=== PATIENT | male | born 1995 | race African-American/Black ===

== ENCOUNTER 2017-01-10 09:54 | Emergency (ER) | payer SELFPAY ==
[2017-01-10 11:40] LABS: Hematocrit 43 % (42-52); Hemoglobin 14.1 g/dl (14.0-18.0); Mean Corpuscular HGB Conc 33 g/dl (31-36); Mean Corpuscular Hemoglobin 24 pg (27-31); Mean Corpuscular Volume 73 fL (80-94); Mean Platelet Volume 9 um3 (7.4-10.4); Red Blood Count 5.94 10^6/ul (4.0-5.4); Red Cell Distribution Width 15 % (10.5-15); White Blood Count 6.7 10^3/ul (3.5-10.8)
[2017-01-10 11:43] LABS: Add Diff/Slide Review? Slide Review Added; Comments Flag Yes
[2017-01-10 11:55] LABS: ALT 19 U/L (7-52); AST 18 U/L (13-39); Albumin 4.2 g/dL (3.2-5.2); Alkaline Phosphatase 56 U/L (34-104); Anion Gap 4 mmol/L (2-11); BUN/Creatinine Ratio 14.6 (8-20); Blood Urea Nitrogen 15 mg/dL (6-24); CO2 Carbon Dioxide 29 mmol/L (22-32); Calcium 9.2 mg/dL (8.6-10.3); Chloride 105 mmol/L (101-111); Creatine Kinase 449 U/L (10-223); EGFR African American 116.1 (>60); EGFR Non-African American 90.3 (>60); Glucose 95 mg/dL (70-100); Magnesium 2.1 mg/dL (1.9-2.7); Potassium 3.8 mmol/L (3.5-5.0); Sodium 138 mmol/L (133-145); Total Protein 7.2 g/dL (6.4-8.9)
[2017-01-10 12:02] LABS: Hypochromasia 2+; Microcytosis 2+
[2017-01-10 12:08] LABS: Alcohol < 10 mg/dL (<10)
[2017-01-10 14:18] VITALS: BP 131/94
[2017-01-10 14:54] LABS: Urine Bacteria Absent (Absent); Urine Bilirubin Negative (Negative); Urine Glucose Negative (Negative); Urine Nitrite Negative (Negative)
[2017-01-10 15:03] LABS: Benzodiazepine Urine Screen Presumptive Positive (None Detect)
--- NOTE | 2017-01-10 21:39 | CONS ---
NEUROLOGY CONSULTATION: DATE OF CONSULT: 01/10/17 LOCATION: The patient is in the emergency department. REQUESTING PROVIDER: Dr. Juliana Mejia. REASON FOR CONSULT: Seizure. HISTORY OF PRESENT ILLNESS: Avni Ortiz is a 21-year-old man with history of primary generalized epilepsy with rare generalized convulsions and history of medication noncompliance. I saw him as an outpatient in May of 2015 and recommended that he start Keppra at that time after he had experienced a breakthrough seizure in April of 2015. He then did not follow up after that visit. Yesterday, he was in his usual state of health aside from feeling overheated secondary to wearing multiple layers of clothing despite the fact that it was warm out. He also reports that he has not been sleeping well because he has been very busy at work. His cousin reports that he had an episode of whole body shaking and loss of awareness. Avni reports that when he woke up, he fell slightly out of it but it did not seem as severe as his previous episodes, so he is not really sure if he had a seizure or not. He went to work as usual this morning and told his place of employment what happened and they recommended that he come to the hospital for work clearance in order to return to work with no restrictions. 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 With respect to his previous medications, he has been treated with Depakote in the past and when I saw him in May of 2015, he reported that this made him drowsy and that is why he stopped taking it. I prescribed him Keppra and he cannot really recall why he stopped taking that medication but just says he did not like it. We discussed alternate medications to use including zonisamide but decided against using this because he has a history of SULFA DRUG allergy. He reports that he knows he should take antiseizure medication because even though his seizures are relatively rare , they have a large impact on his life in that he is not able to drive after a seizure. He reports that he is now ready to take medication and suggested that he would like to be placed back on Depakote. PAST MEDICAL HISTORY: Primary generalized epilepsy. FAMILY HISTORY: Noncontributory at this time. 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 He is working towards an associate degree in criminal justice. 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 He smokes marijuana to help him sleep at night. He reports that he drank approximately 2 beers 2 nights ago. REVIEW OF SYSTEMS: As per the HPI, otherwise negative. PHYSICAL EXAM: Vital Signs: Temperature 97.7, blood pressure 126/81, heart rate 64, and oxygen saturation 96% on room air. On general examination, he is a pleasant young man, in no acute distress. Heart is in the regular rate and rhythm with no murmurs, rubs, or gallops. Lungs are clear to auscultation bilaterally. There is no oral trauma evidenced. On neurologic examination, his mental status is normal. Speech is fluent without dysarthria or aphasia. Pupils are equal, round, and reactive from 3 to 2 mm bilaterally. Versions are full without nystagmus. Cast are full to confrontation. Facial sensation and musculature is full and symmetric. Tongue protrudes in the midline and the palate elevates symmetrically. On motor examination, there is normal bulk and tone in the upper and lower extremities. Strength is full proximally and distally. Sensation is intact to light touch. Reflexes are 2+ throughout with downgoing toes. He was not ambulated in the emergency department. LABORATORY DATA: Reviewed includes a CBC which is notable for RBC count of 5.94 , MCV of 73, MCH of 24, and slightly high monocyte percentage of 11.8 and slightly high eosinophil percentage of 7.5. His chemistry panel is notable only for a total CK of 449. Serum alcohol less than 10. IMPRESSION: Avni Ortiz is a 21-year-old man with a history of primary generalized epilepsy and rare convulsions, who was referred to the hospital for work clearance after he experienced a probable seizure yesterday. Though Avni reports that this episode was not exactly like his previous seizures in the past, I do not see another good explanation for an episode of loss of consciousness and whole body shaking in this 21-year-old man. As mentioned above, we discussed treatment of his epilepsy and he is in favor of starting Depakote at this time. He will start Depakote ER 500 mg at night and after 1 week, I would like him to increase the dose to 1000 mg at night. He was advised that he cannot drive for 12 months and should report himself to the [facility] DMV on the appropriate form. Seizure precautions were reviewed including avoiding climbing to heights taller than himself, no swimming unsupervised, he is not be around any open flames unsupervised, and he should not operate any heavy machinery. As his job involves none of these activities, he can return to work without any specific restrictions. He should follow up with me in my office in approximately 3 months and I will ask the office to give him a call to schedule that. He was instructed to call my office with any problems with tolerating his medication. All of the above was communicated to Dr. Juliana Mejia in the ED, who will arrange for his discharge. [id number]/CPS #: [id number] REBECCA
--- NOTE | 2017-01-10 22:01 | ED ---
betsy Keller Timothy, scribed for Juliana Mejia MD on 01/10/17 at 1116 . Neurological HPI - HPI Summary HPI Summary: Avni Ortiz is a 21 yo male presenting to [facility] stating he had a seizure yesterday at 1530 witnessed by his cousin. He states he was not drinking EtOH or doing drugs. His last marijuana use was 2 days ago. Pt has a Hx of seizure 1.5 years ago with a Rx for epileptic medication, however has not taken them since due to negative side effects including grogginess. He was told by his place of employment that he had to present to [facility]. Pt reports cousin described his seizure as "full body shaking" for a few seconds. Pt reports that when he awoke he was confused and tired. He slept normally and woke up feeling fine. He denies any complaints since then. He states he had bronchitis approximately 1 month ago. His MHx includes epilepsy, MRSA, and palpitations. - History of Current Complaint Chief Complaint: EDSeizure Stated Complaint: SEIZURE Time Seen by Provider: 01/10/17 11:29 Hx Obtained From: Patient Onset/Duration: Sudden Onset, Started days ago Timing: Intermittent Episodes Lasting: - seconds Onset Severity: Moderate Current Severity: Moderate Seizure Severity: Moderate Number of Seizures: 1 Neurological Deficit Location: Generalized Pain Intensity: 0 Pain Scale Used: 0-10 Numeric Character: Other: - seizure Syncope Timing: seconds Episode Lasting: Seconds/Minutes Number of Episodes: 1 Syncope Context: Witnessed, Loss of Consciousness: Yes Frequency: Episodes x___ - 1 Seizure Character: Generalized Aggravating: Nothing Alleviating: Nothing Associated Signs and Symptoms: Positive: Seizure Related Hx: Alcohol/Drug Abuse - marijuana, Seizure - DC'd Joan on his own after being seen by Dr. Mims - Additional Pertinent History Referred By: Other - his work - Allergy/Home Medications Allergies/Adverse Reactions: Allergies Allergy/AdvReac Type Severity Reaction Status Date / Time Sulfa Antibiotics AdvReac Severe HIVES Verified 01/10/17 10:06 PMH/Surg Hx/FS Hx/Imm Hx Previously Healthy: No Cardiovascular History: Reports: Other Cardiovascular Problems/Disorders - "ATHLETES' HEART" Neurological History: Reports: Hx Seizures - generalized epilepsy - Surgical History Surgery Procedure, Year, and Place: no surgical hx Infectious Disease History: Yes Infectious Disease History: Reports: Hx of Known/Suspected MRSA Denies: Traveled Outside the [place] in Last 30 Days - Family History Known Family History: Positive: Cardiac Disease, Other - seizure disorder - uncle - Social History 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 Alcohol Use: Rare Hx Substance Use: Yes Substance Use Type: Reports: Marijuana Smoking Status (MU): Never Smoked Tobacco Review of Systems Constitutional: Negative Eyes: Negative ENT: Negative Cardiovascular: Negative Respiratory: Negative Gastrointestinal: Negative Genitourinary: Negative Musculoskeletal: Negative Skin: Negative Neurological: Other - seizure Psychological: Normal All Other Systems Reviewed And Are Negative: Yes Physical Exam Triage Information Reviewed: Yes Vital Signs On Initial Exam: Initial Vitals Temp Pulse Resp BP Pulse Ox 97.2 F 75 20 135/74 100 01/10/17 09:59 01/10/17 09:59 01/10/17 09:59 01/10/17 09:59 01/10/17 09:59 Vital Signs Reviewed: Yes Appearance: Positive: No Pain Distress, Well-Nourished, Ill-Appearing Skin: Positive: Warm, Skin Color Reflects Adequate Perfusion, Dry Head/Face: Positive: Normal Head/Face Inspection Eyes: Positive: EOMI, Conjunctiva Clear ENT: Positive: Normal ENT inspection, Pharynx normal Neck: Positive: Supple, Nontender Respiratory/Lung Sounds: Positive: Clear to Auscultation, Breath Sounds Present Cardiovascular: Positive: RRR, Pulses are Symmetrical in both Upper and Lower Extremities. Negative: Murmur, Rub, Other - gallop Abdomen Description: Positive: Nontender, Soft Bowel Sounds: Positive: Present Musculoskeletal: Positive: Strength/ROM Intact Neurological: Positive: Sensory/Motor Intact - 5/5, Alert, Oriented to Person Place, Time, CN Intact II-III, Reflexes Intact, Normal Gait, Speech Normal. Negative: Focal Deficit @, Slurred Speech Psychiatric: Positive: Normal, Affect/Mood Appropriate Diagnostics - Vital Signs Vital Signs Temp Pulse Resp BP Pulse Ox 01/10/17 10:09 97.7 F 73 18 126/72 97 01/10/17 09:59 97.2 F 75 20 135/74 100 - Laboratory Lab Results: Lab Results 01/10/17 01/10/17 01/10/17 Range/Units 11:32 11:32 11:32 WBC 6.7 (3.5-10.8) 10^3/ul RBC 5.94 H (4.0-5.4) 10^6/ul Hgb 14.1 (14.0-18.0) g/dl Hct 43 (42-52) % MCV 73 L (80-94) fL MCH 24 L (27-31) pg MCHC 33 (31-36) g/dl RDW 15 (10.5-15) % Plt Count 252 (150-450) 10^3/ul MPV 9 (7.4-10.4) um3 Neut % (Auto) 52.5 (38-83) % Lymph % (Auto) 27.2 (25-47) % [place] % (Auto) 11.8 H (1-9) % Eos % (Auto) 7.5 H (0-6) % Baso % (Auto) 1.0 (0-2) % Absolute Neuts (auto) 3.5 (1.5-7.7) 10^3/ul Absolute Lymphs (auto) 1.8 (1.0-4.8) 10^3/ul Absolute Monos (auto) 0.8 (0-0.8) 10^3/ul Absolute Eos (auto) 0.5 (0-0.6) 10^3/ul Absolute Basos (auto) 0.1 (0-0.2) 10^3/ul Absolute Nucleated RBC 0.02 10^3/ul Nucleated RBC % 0.3 Normal RBC Morphology Not Reportable Hypochromasia 2+ Microcytosis 2+ INR (Anticoag Therapy) 0.97 (0.89-1.11) APTT 36.8 H (26.0-36.3) seconds Sodium 138 (133-145) mmol/L Potassium 3.8 (3.5-5.0) mmol/L Chloride 105 (101-111) mmol/L Carbon Dioxide 29 (22-32) mmol/L Anion Gap 4 (2-11) mmol/L BUN 15 (6-24) mg/dL Creatinine 1.03 (0.67-1.17) mg/dL Est GFR ( Amer) 116.1 (>60) Est GFR (Non-Af Amer) 90.3 (>60) BUN/Creatinine Ratio 14.6 (8-20) Glucose 95 (70-100) mg/dL Lactic Acid (0.5-2.0) mmol/L Calcium 9.2 (8.6-10.3) mg/dL Magnesium 2.1 (1.9-2.7) mg/dL Total Bilirubin 1.00 (0.2-1.0) mg/dL AST 18 (13-39) U/L ALT 19 (7-52) U/L Alkaline Phosphatase 56 (34-104) U/L Total Creatine Kinase 449 H (10-223) U/L Total Protein 7.2 (6.4-8.9) g/dL Albumin 4.2 (3.2-5.2) g/dL Globulin 3.0 (2-4) g/dL Albumin/Globulin Ratio 1.4 (1-3) Urine Color Urine Appearance Urine pH (5-9) Ur Specific [place] (1.010-1.030) Urine Protein (Negative) Urine Ketones (Negative) Urine Blood (Negative) Urine Nitrate (Negative) Urine Bilirubin (Negative) Urine Urobilinogen (Negative) Ur Leukocyte Esterase (Negative) Urine WBC (Auto) (Absent) Urine RBC (Auto) (Absent) Ur Squamous Epith Cells (Absent) Urine Bacteria (Absent) Urine Glucose (Negative) Urine Opiates Screen (None Detect) Ur Barbiturates Screen (None Detect) Ur Phencyclidine Scrn (None Detect) Ur Amphetamines Screen (None Detect) U Benzodiazepines Scrn (None Detect) Urine Cocaine Screen (None Detect) U Cannabinoids Screen (None Detect) Serum Alcohol < 10 (<10) mg/dL 01/10/17 01/10/17 01/10/17 Range/Units 11:32 14:10 14:10 WBC (3.5-10.8) 10^3/ul RBC (4.0-5.4) 10^6/ul Hgb (14.0-18.0) g/dl Hct (42-52) % MCV (80-94) fL MCH (27-31) pg MCHC (31-36) g/dl RDW (10.5-15) % Plt Count (150-450) 10^3/ul MPV (7.4-10.4) um3 Neut % (Auto) (38-83) % Lymph % (Auto) (25-47) % [place] % (Auto) (1-9) % Eos % (Auto) (0-6) % Baso % (Auto) (0-2) % Absolute Neuts (auto) (1.5-7.7) 10^3/ul Absolute Lymphs (auto) (1.0-4.8) 10^3/ul Absolute Monos (auto) (0-0.8) 10^3/ul Absolute Eos (auto) (0-0.6) 10^3/ul Absolute Basos (auto) (0-0.2) 10^3/ul Absolute Nucleated RBC 10^3/ul Nucleated RBC % Normal RBC Morphology Hypochromasia Microcytosis INR (Anticoag Therapy) (0.89-1.11) APTT (26.0-36.3) seconds Sodium (133-145) mmol/L Potassium (3.5-5.0) mmol/L Chloride (101-111) mmol/L Carbon Dioxide (22-32) mmol/L Anion Gap (2-11) mmol/L BUN (6-24) mg/dL Creatinine (0.67-1.17) mg/dL Est GFR ( Amer) (>60) Est GFR (Non-Af Amer) (>60) BUN/Creatinine Ratio (8-20) Glucose (70-100) mg/dL Lactic Acid 0.8 (0.5-2.0) mmol/L Calcium (8.6-10.3) mg/dL Magnesium (1.9-2.7) mg/dL Total Bilirubin (0.2-1.0) mg/dL AST (13-39) U/L ALT (7-52) U/L Alkaline Phosphatase (34-104) U/L Total Creatine Kinase (10-223) U/L Total Protein (6.4-8.9) g/dL Albumin (3.2-5.2) g/dL Globulin (2-4) g/dL Albumin/Globulin Ratio (1-3) Urine Color Yellow Urine Appearance Cloudy Urine pH 5.0 (5-9) Ur Specific [place] 1.027 (1.010-1.030) Urine Protein Negative (Negative) Urine Ketones Negative (Negative) Urine Blood Negative (Negative) Urine Nitrate Negative (Negative) Urine Bilirubin Negative (Negative) Urine Urobilinogen Negative (Negative) Ur Leukocyte Esterase Trace H (Negative) Urine WBC (Auto) 1+(6-10/hpf) H (Absent) Urine RBC (Auto) Absent (Absent) Ur Squamous Epith Cells Present H (Absent) Urine Bacteria Absent (Absent) Urine Glucose Negative (Negative) Urine Opiates Screen None detected (None Detect) Ur Barbiturates Screen None detected (None Detect) Ur Phencyclidine Scrn None detected (None Detect) Ur Amphetamines Screen None detected (None Detect) U Benzodiazepines Scrn Presumptive positive H (None Detect) Urine Cocaine Screen None detected (None Detect) U Cannabinoids Screen None detected (None Detect) Serum Alcohol (<10) mg/dL Result Diagrams: 01/10/17 11:32 01/10/17 11:32 Lab Statement: Any lab studies that have been ordered have been reviewed, and results considered in the medical decision making process. - EKG 1116 Cardiac Rate: NL - 68 BPM EKG Interpretation: NSR @ 68 PM, nml AV/IV, normal axis, inverted T III. no acute changes. Re-Evaluation - Re-Evaluation First Eval Re-Evaluation Time: 14:23 Change: Unchanged Comment: Pt was stressed the importance of not driving until cleared by Dr. Mims, he is agreeable to be discharged. Course/Dx - Course Assessment/Plan: Avni Ortiz is a 21 yo male presenting to [facility] S/P seizure lasting seconds last night in which he experienced full body shaking. Seizure was witnessed by Pt's cousin. His EKG was WNL. After clinical examination and review of his lab work, as well as discussion with Dr. Mims, he will be discharged home with seizures, started on Depakote ER, advised not to drive, but may work, and appropriate instructions. - Differential Dx Differential Diagnoses Neuro: Positive: Drug Toxicity, Migraine, Seizure Disorder, Vasovagal Reaction - Diagnoses Provider Diagnoses: Epilepsy - Physician Notifications Discussed Care of Patient With: 1257 - Dr. Mims (neurology) - discussed Pt condition and plans for follow up. She will come evaluate Pt in room. 1400 - Dr. Mims (neurology) - discussed Pt condition and evaluation. Recommends discharge with follow up in 3 months, and no driving. Instructed by Provider To: MD Will See In ED Discharge - Discharge Plan Condition: Stable Disposition: HOME Prescriptions: Divalproex ER TAB(*) [Depakote ER TAB(*)] 500 mg PO BID #60 tab.er Patient Education Materials: Epilepsy (ED) Forms: *Gen. Provider Communication, *Work Release Referrals: [facility] REFERRAL [Outside] - As Soon As Possible (You need a primary care physician. Call this number to get established. ) Shelly Mims MD [Medical Doctor] - 04/11/17 No Primary Care Phys,NOPCP [Primary Care Provider] - Additional Instructions: Please follow up with Dr. Mims in approximately 3 months regarding your visit to the emergency department today. Dr. Mims states that you may not drive given the unpredictability of your seizures until you are cleared by Dr. Mims. Please return to the emergency department with any new or recurring symptoms. The documentation as recorded by the betsy ragsdale Timothy accurately reflects the service I personally performed and the decisions made by me, Juliana Mejia MD.
== END 2017-01-10 14:27 | disposition home or self-care (01) ==
LOC: ED 09:54
DX: G40.909 Epilepsy, unspecified, not intractable, without status epilepticus (principal)
CPT/HCPCS: 36415; 80053; 80307; 80320; 81003; 81015; 82550; 83605; 83735; 85025; 85610; 85730; 87086; 93005; 99282; G0480

== ENCOUNTER 2017-02-17 11:11 | Emergency (ER) | payer SELFPAY ==
[2017-02-17] MEDS ORDERED: NS 0.9% 1000 ML* 1,000 ML IV ONE (12:57)
[2017-02-17] MEDS ORDERED: Metoclopramide IV* 5 MG/ML 2 ML VIAL IV ONE (12:57)
[2017-02-17] MEDS ORDERED: Meclizine TAB* 12.5 MG PO ONE (12:59)
[2017-02-17] MEDS ORDERED: Ketorolac INJ* 30 MG/ML 1 ML VIAL IM ONE (13:00)
--- NOTE | 2017-02-17 13:38 | RAD ---
Indication: Cough. 2 views of the chest including dual energy PA views demonstrate no mediastinal shift. Heart is of normal size and configuration. Lung rankin are clear. IMPRESSION: No active cardiopulmonary disease is noted.
[2017-02-17 13:55] LABS: Hematocrit 44 % (42-52); Hemoglobin 14.2 g/dl (14.0-18.0); Mean Corpuscular HGB Conc 33 g/dl (31-36); Mean Corpuscular Hemoglobin 24 pg (27-31); Mean Platelet Volume 9 um3 (7.4-10.4); Red Blood Count 6.04 10^6/ul (4.0-5.4); Red Cell Distribution Width 15 % (10.5-15); White Blood Count 9.2 10^3/ul (3.5-10.8)
[2017-02-17] MEDS ORDERED: Ketorolac INJ* 30 MG/ML 1 ML VIAL IV PUSH ONE (13:58)
[2017-02-17 14:00] LABS: Comments Flag Yes
[2017-02-17 14:01] LABS: Mean Corpuscular Volume 72 fL (80-94)
[2017-02-17 14:08] LABS: BUN/Creatinine Ratio 10.1 (8-20); C Reactive Protein 52.46 mg/L (< 5.00); Calcium 8.8 mg/dL (8.6-10.3); EGFR African American 108.8 (>60); EGFR Non-African American 84.6 (>60); Globulin 3.3 g/dL (2-4); Potassium 3.9 mmol/L (3.5-5.0); Total Protein 7.3 g/dL (6.4-8.9)
[2017-02-17 15:13] LABS: Manual Entry Verification HAN0055; Mono Internal Control QC Line Present
[2017-02-17 15:38] VITALS: BP 143/74
--- NOTE | 2017-02-17 18:35 | ED ---
betsy Keller Timothy, scribed for Gonzalez Acevedo MD on 02/17/17 at 1251 . Influenza-Like Illness - HPI Summary HPI Summary: Avni Ortiz is a 21 yo male presenting to [facility] with 7/10 dizziness, sore throat, MURPHY, nausea, diarrhea, chills, cough since yesterday. He has self- medicated with motrin. He denies neck pain or blurred vision, CP, SOB. His MHx includes general epilepsy, substance use, MRSA, "athletic heart". - History of Current Complaint Chief Complaint: EDDizziness Time Seen by Provider: 02/17/17 12:45 Hx Obtained From: Patient Onset/Duration: Sudden Onset, Lasting Days, Still Present Severity: Moderate Associated Signs & Symptoms: Fever, Cough, Sore Throat, Headache, Diarrhea - Allergy/Home Medications Allergies/Adverse Reactions: Allergies Allergy/AdvReac Type Severity Reaction Status Date / Time Sulfa Antibiotics AdvReac Severe HIVES Verified 01/10/17 10:06 PMH/Surg Hx/FS Hx/Imm Hx Cardiovascular History: Reports: Other Cardiovascular Problems/Disorders - "ATHLETES' HEART" Neurological History: Reports: Hx Seizures - generalized epilepsy - Surgical History Surgery Procedure, Year, and Place: no surgical hx Infectious Disease History: No Infectious Disease History: Reports: Hx of Known/Suspected MRSA Denies: Traveled Outside the [place] in Last 30 Days - Family History Known Family History: Positive: Cardiac Disease, Hypertension, Diabetes, Other - seizure disorder - uncle - Social History Alcohol Use: Rare Hx Substance Use: Yes Substance Use Type: Reports: Marijuana Smoking Status (MU): Never Smoked Tobacco Review of Systems Positive: Fever, Chills Positive: Sore Throat Cardiovascular: Negative Negative: Chest Pain Positive: Cough. Negative: Shortness Of Breath Positive: Diarrhea, Nausea Genitourinary: Negative Musculoskeletal: Negative Skin: Negative Neurological: Other - dizziness Positive: Headache Psychological: Normal All Other Systems Reviewed And Are Negative: Yes Physical Exam - Summary Physical Exam Summary: VITAL SIGNS: Reviewed. GENERAL: Patient is a well-developed and nourished male who is lying comfortable in the stretcher. Patient is not in any acute respiratory distress. There are no meningeal signs or photophobia. HEAD AND FACE: No signs of trauma. No ecchymosis, hematomas or skull depressions. No sinus tenderness. EYES: PERRLA, EOMI x 2, No injected conjunctiva, no nystagmus. No photophobia. EARS: Hearing grossly intact. Ear canals and tympanic membranes are within normal limits. MOUTH: Oropharynx within normal limits. Pharyngeal erythema without exudate. NECK: Supple, trachea is midline, no adenopathy, no JVD, no carotid bruit, no c- spine tenderness, neck with full ROM. No meningeal signs, no Kernig's or brudzinskis signs. CHEST: Symmetric, no tenderness at palpation LUNGS: Clear to auscultation bilaterally. No wheezing or crackles. CVS: Regular rate and rhythm, S1 and S2 present, no murmurs or gallops appreciated. ABDOMEN: Soft, non-tender. No signs of distention. No rebound no guarding, and no masses palpated. Bowel sounds are normal. EXTREMITIES: FROM in all major joints, no edema, no cyanosis or clubbing. NEURO: Alert and oriented x 3. No acute neurological deficits. Speech is normal and follows commands. SKIN: Dry and warm Triage Information Reviewed: Yes Vital Signs On Initial Exam: Initial Vitals Temp Pulse Resp BP Pulse Ox 97.8 F 112 20 141/77 100 02/17/17 11:13 02/17/17 11:13 02/17/17 11:13 02/17/17 11:13 02/17/17 11:13 Vital Signs Reviewed: Yes Diagnostics - Vital Signs Vital Signs Temp Pulse Resp BP Pulse Ox 02/17/17 11:13 97.8 F 112 20 141/77 100 - Laboratory Lab Results: Lab Results 02/17/17 02/17/17 02/17/17 Range/Units 13:01 13:46 13:46 WBC 9.2 (3.5-10.8) 10^3/ul RBC 6.04 H (4.0-5.4) 10^6/ul Hgb 14.2 (14.0-18.0) g/dl Hct 44 (42-52) % MCV 72 L (80-94) fL MCH 24 L (27-31) pg MCHC 33 (31-36) g/dl RDW 15 (10.5-15) % Plt Count 220 (150-450) 10^3/ul MPV 9 (7.4-10.4) um3 Neut % (Auto) 73.5 (38-83) % Lymph % (Auto) 8.9 L (25-47) % [place] % (Auto) 16.8 H (1-9) % Eos % (Auto) 0.4 (0-6) % Baso % (Auto) 0.4 (0-2) % Absolute Neuts (auto) 6.7 (1.5-7.7) 10^3/ul Absolute Lymphs (auto) 0.8 L (1.0-4.8) 10^3/ul Absolute Monos (auto) 1.5 H (0-0.8) 10^3/ul Absolute Eos (auto) 0 (0-0.6) 10^3/ul Absolute Basos (auto) 0 (0-0.2) 10^3/ul Absolute Nucleated RBC 0 10^3/ul Nucleated RBC % 0 Sodium 135 (133-145) mmol/L Potassium 3.9 (3.5-5.0) mmol/L Chloride 104 (101-111) mmol/L Carbon Dioxide 22 (22-32) mmol/L Anion Gap 9 (2-11) mmol/L BUN 11 (6-24) mg/dL Creatinine 1.09 (0.67-1.17) mg/dL Est GFR ( Amer) 108.8 (>60) Est GFR (Non-Af Amer) 84.6 (>60) BUN/Creatinine Ratio 10.1 (8-20) Glucose 94 (70-100) mg/dL Lactic Acid (0.5-2.0) mmol/L Calcium 8.8 (8.6-10.3) mg/dL Total Bilirubin 1.00 (0.2-1.0) mg/dL AST 21 (13-39) U/L ALT 24 (7-52) U/L Alkaline Phosphatase 59 (34-104) U/L C-Reactive Protein 52.46 H (< 5.00) mg/L Total Protein 7.3 (6.4-8.9) g/dL Albumin 4.0 (3.2-5.2) g/dL Globulin 3.3 (2-4) g/dL Albumin/Globulin Ratio 1.2 (1-3) Monoscreen Positive H (Negative) Group A Strep Rapid Negative (Negative) 02/17/17 Range/Units 13:46 WBC (3.5-10.8) 10^3/ul RBC (4.0-5.4) 10^6/ul Hgb (14.0-18.0) g/dl Hct (42-52) % MCV (80-94) fL MCH (27-31) pg MCHC (31-36) g/dl RDW (10.5-15) % Plt Count (150-450) 10^3/ul MPV (7.4-10.4) um3 Neut % (Auto) (38-83) % Lymph % (Auto) (25-47) % [place] % (Auto) (1-9) % Eos % (Auto) (0-6) % Baso % (Auto) (0-2) % Absolute Neuts (auto) (1.5-7.7) 10^3/ul Absolute Lymphs (auto) (1.0-4.8) 10^3/ul Absolute Monos (auto) (0-0.8) 10^3/ul Absolute Eos (auto) (0-0.6) 10^3/ul Absolute Basos (auto) (0-0.2) 10^3/ul Absolute Nucleated RBC 10^3/ul Nucleated RBC % Sodium (133-145) mmol/L Potassium (3.5-5.0) mmol/L Chloride (101-111) mmol/L Carbon Dioxide (22-32) mmol/L Anion Gap (2-11) mmol/L BUN (6-24) mg/dL Creatinine (0.67-1.17) mg/dL Est GFR ( Amer) (>60) Est GFR (Non-Af Amer) (>60) BUN/Creatinine Ratio (8-20) Glucose (70-100) mg/dL Lactic Acid 0.8 (0.5-2.0) mmol/L Calcium (8.6-10.3) mg/dL Total Bilirubin (0.2-1.0) mg/dL AST (13-39) U/L ALT (7-52) U/L Alkaline Phosphatase (34-104) U/L C-Reactive Protein (< 5.00) mg/L Total Protein (6.4-8.9) g/dL Albumin (3.2-5.2) g/dL Globulin (2-4) g/dL Albumin/Globulin Ratio (1-3) Monoscreen (Negative) Group A Strep Rapid (Negative) Result Diagrams: 02/17/17 13:46 02/17/17 13:46 Lab Statement: Any lab studies that have been ordered have been reviewed, and results considered in the medical decision making process. - Radiology CXR Xray Interpretation: No Acute Changes - IMPRESSION: No active cardiopulmonary disease is noted. Radiology Interpretation Completed By: Radiologist - EKG 1335 Cardiac Rate: NL - 99 BPM EKG Interpretation: NSR @ 99 BPM, no ST elevation Re-Evaluation - Re-Evaluation First Eval Re-Evaluation Time: 15:28 Change: Improved Comment: Discussed results of lab and imaging studies with Pt. Pt is feeling better, and would like to be off work for today and tomorrow. Flu Symptom Course/Dx - Course Assessment/Plan: Avni Ortiz is a 21 yo male presenting to [facility] with dizziness, sore throat, MURPHY, nausea, diarrhea, chills, cough, photophobia since yesterday. In the ED course he received IV fluids, toradol for pain management, reglan for nausea control, and antivert. His group A rapid strep test was negative. His CXR suggests no active cardiopulmonary disease. His EKG suggests NSR with no ST elevation. After clinical examination and review of his lab and imaging studies, he will be discharged home with viral pharyngitis, mono infection, and diarrhea with appropriate instructions. Test results WNL except CRP 52. His rapid strep was negative, his monoscreen was positive. CXR negative for any acute pathology. In ED course he received IV fluids, toradol for pain, and his Sx improved. At this point Pt is asymtpomatic. I believ all his Sx are secondary to infectious mono and possibly viral congitis. Pt will be discharged home with F/U with his PCP. Pt was given instructions to avoid contact sports, and understands and agrees. I discussed all the findings and test results with the patient. Patient was instructed to return to the emergency room immediately if any of the symptoms return or worsens. Patient understands and agrees. Plan of care was discussed with the patient and patient understands and agrees with the plan of care. All questions were answered at patient satisfaction. There were no further complaints or concerns. Patient is alert and oriented x 3. Patient vital signs are stable. Patient is to follow up with primary care physician in the next 2 to 3 days. Patient understands and agrees. - Diagnoses Provider Diagnoses: Viral pharyngitis, Mononucleosis, Diarrhea Discharge - Discharge Plan Condition: Stable Disposition: HOME Patient Education Materials: Pharyngitis (ED), Mononucleosis (ED), Acute Diarrhea (ED) Forms: *Work Release Referrals: [facility]ERR[facility] [Outside] - 2 Days Additional Instructions: Please follow up with the primary care physician provided regarding your visit to the emergency department today. You have tested positive for mono today, so do not participate in any contact sports or other activities that could result in trauma to your abdomen. Return to the emergency department with any new or recurring symptoms. The documentation as recorded by the betsy ragsdale Timothy accurately reflects the service I personally performed and the decisions made by , Gonzalez Acevedo MD.
== END 2017-02-17 15:45 | disposition home or self-care (01) ==
LOC: ED 11:11
DX: J02.8 Acute pharyngitis due to other specified organisms (principal); B97.89 Other viral agents as the cause of diseases classified elsewhere; B27.90 Infectious mononucleosis, unspecified without complication; R19.7 Diarrhea, unspecified; G40.909 Epilepsy, unspecified, not intractable, without status epilepticus; I51.7 Cardiomegaly; Z88.2 Allergy status to sulfonamides
CPT/HCPCS: 36415; 71020; 80053; 83605; 85025; 86140; 86308; 87651; 93005; 96360; 96372; 96374; 99283; A9270-GY; J1885

== ENCOUNTER 2017-02-24 08:46 | Observation (INO) | payer SELFPAY ==
[2017-02-24 09:15] LABS: Hematocrit 43 % (42-52); Hemoglobin 13.8 g/dl (14.0-18.0); Mean Corpuscular HGB Conc 32 g/dl (31-36); Mean Corpuscular Hemoglobin 23 pg (27-31); Mean Platelet Volume 8 um3 (7.4-10.4); Red Blood Count 5.92 10^6/ul (4.0-5.4); Red Cell Distribution Width 15 % (10.5-15); White Blood Count 5.8 10^3/ul (3.5-10.8)
[2017-02-24 09:27] LABS: Comments Flag Yes; Mean Corpuscular Volume 72 fL (80-94)
[2017-02-24 09:28] LABS: ALT 33 U/L (7-52); AST 26 U/L (13-39); Albumin 4.2 g/dL (3.2-5.2); Alkaline Phosphatase 55 U/L (34-104); Anion Gap 7 mmol/L (2-11); BUN/Creatinine Ratio 14.2 (8-20); Blood Urea Nitrogen 16 mg/dL (6-24); CO2 Carbon Dioxide 25 mmol/L (22-32); Calcium 9.1 mg/dL (8.6-10.3); Chloride 104 mmol/L (101-111); EGFR African American 104.4 (>60); EGFR Non-African American 81.1 (>60); Globulin 3.1 g/dL (2-4); Glucose 114 mg/dL (70-100); Magnesium 2.2 mg/dL (1.9-2.7); Sodium 136 mmol/L (133-145); Total Protein 7.3 g/dL (6.4-8.9)
[2017-02-24 10:19] LABS: Valproic Acid < 13.0 mcg/mL (50-100)
--- NOTE | 2017-02-24 10:34 | RAD ---
INDICATION: Head injury. COMPARISON: Comparison is made with a prior CT of the brain from June 30, 2013. TECHNIQUE: Contiguous axial sections of the brain were obtained from the skull base to the vertex without contrast. FINDINGS: The ventricles, cisterns and sulci are within normal limits. No significant focal abnormality or mass effect is seen. There is no evidence for hemorrhage. There is focal soft tissue swelling and a hematoma in the scalp adjacent to the posterior aspect of the right parietal bone towards the vertex. This measures 6.9 x 1.8 cm in size. No fracture is seen. The visualized portion of the paranasal sinuses and mastoid air cells appear clear. IMPRESSION: 1. NO EVIDENCE FOR ACUTE INTRACRANIAL ABNORMALITY. 2. HEMATOMA IN THE SCALP IN THE POSTERIOR RIGHT PARIETAL REGION NOTED.
[2017-02-24] MEDS ORDERED: Valproic Acid IV(*) 100 MG/ML 5 ML VIAL (500 MG) IVPB ONE (10:37)
[2017-02-24] MEDS ORDERED: VALPROIC ACID ONE (10:40)
[2017-02-24] MEDS ORDERED: Ondansetron INJ* 2 MG/ML VIAL IV PRN (16:44)
[2017-02-24] MEDS ORDERED: Acetaminophen TAB* 325 MG PO PRN (16:44)
[2017-02-24] MEDS ORDERED: NS 0.9% 1000 ML* 1,000 ML IV SCH (16:45)
[2017-02-24] MEDS ORDERED: LORazepam INJ* 2 MG/ML 1 ML VIAL ONE ×2 (18:29→18:33)
[2017-02-24] MEDS ORDERED: LORazepam INJ* 2 MG/ML 1 ML VIAL IV PUSH PRN (18:36)
--- NOTE | 2017-02-24 18:40 | PN ---
Hospitalist Progress Note CAT call: Called to patient's room for seizure activity. Generalized convulsions lasting several minutes. Patient maintained airway without significant periods of apnea. He was in bed, no fall. Blood noted at his mouth due to biting his tongue. Airway suctioned. Seizure resolved with 1mg Ativan. Additional 250 mg IV valproic acid ordered. Transfer to ICU for further monitoring.
[2017-02-24] MEDS: Divalproex DR TAB(*) 500 MG PO SCH (20:51)
[2017-02-24] MEDS ORDERED: Divalproex ER TAB(*) 500 MG PO SCH (21:00)
--- NOTE | 2017-02-24 23:40 | HP ---
ADMISSION HISTORY AND PHYSICAL: DATE OF ADMISSION: 02/24/17 PRIMARY CARE PROVIDER: None. PRIMARY NEUROLOGIST: Dr. Shelly Mims. ADMITTING PROVIDER: BERTHA Quintana SUPERVISING PHYSICIAN: DO Fidel Gracia(DICTATED BY BERTHA QUINTANA) CHIEF COMPLAINT: Seizure. HISTORY OF PRESENT ILLNESS: This is a 21-year-old gentleman with a history of known epilepsy, who presented to the emergency department via ambulance after a witnessed seizure at work earlier today. This was described as a generalized convulsive event and the patient was severely lethargic following. The patient had at least one additional seizure at some point either en route or shortly after arriving in the emergency department. The patient was loaded with 500 of IV valproic acid in the emergency room and has had no further seizure activity since that time. The patient is slowly regaining consciousness, but remains quite confused. The patient is able to only provide a small amount of history, but denies any recent illness. He reports compliance with his home medications, but he has a long history of noncompliance and upon verifying with the pharmacy that he reported he fills and previously listed pharmacies he has not filled any medications in at least 2 years. The patient was last seen in the emergency department after seizures just about 6 weeks ago. He was seen by Dr. Shelly Mims at that time. The patient had previously been on Depakote, but had reported lethargy with that and had stopped it and had subsequently switched to Keppra, but had also stopped that medication after discussion with Dr. Mims. During his last hospital stay, plan was to resume Depakote again. Her instructions at that time were to start at 500 mg of the extended release formulation for a week and then increase to a 1000, but again after calling the pharmacy that prescription was sent to, it was never picked up. The patient sustained a laceration to his right parietal region and 3 osmin were placed. PAST MEDICAL HISTORY: Epilepsy. PAST SURGICAL HISTORY: None. HOME MEDICATIONS: Depakote - prescribed, but not taken. SOCIAL HISTORY: The patient denies history of smoking, regular alcohol consumption, or illicit drug use. He is unable to tell me where he works. 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 REVIEW OF SYSTEMS: As noted above in HPI. All other systems have been reviewed and otherwise reported negative. PHYSICAL EXAM: INITIAL VITALS: Temperature 97.8 degrees Fahrenheit, pulse 92 beats per minute, respiratory rate 22 per minute, oxygen saturation 93% on room air, and blood pressure 125/64 mmHg. GENERAL: This is a young gentleman who is alert but seems to be confused and is accompanied by a significant other, but he is in no acute distress. HEENT: Scalp laceration has been repaired with 3 osmin over the right parietal region with evidence of recent bleeding, but seems to have resolved. Mucous membranes are pink and moist, however. Neck: Neck is supple and nontender to palpation. Respiratory: Lungs are clear to auscultation without wheezes, crackles, or rhonchi. Cardiovascular: Heart has a regular rate and rhythm without murmurs, rubs, or gallops. Abdomen: Abdomen is soft and nontender to palpation. Skin: Limited exam shows no concerning rashes or lesions apart from the laceration on his scalp. Extremities: No edema appreciated. Neuro: Cranial nerves II through XII were intact. Strength and range of motion are grossly intact in all extremities. The patient is alert, but having difficulty answering all orientations questions. Psych: The patient is alert. DIAGNOSTIC STUDIES/LAB DATA: CBC shows a white blood cell count of 5800, hemoglobin of 13.8 g/dL, and platelet count of 285,000. INR is 0.94. Comprehensive metabolic panel is unremarkable with the sodium of 136 mmol/L, potassium 4.0. BUN of 16 and creatinine 1.13. Random glucose of 114, calcium 9.1. Lactic acid of 2.2. Transaminases and total bilirubin within normal limits. Valproic acid is listed as less than 13, undetectable. IMAGING: CT of the brain shows no intracranial abnormalities. There is a right scalp hematoma noted. ASSESSMENT AND PLAN: This is a 21-year-old gentleman with known epilepsy and what seems to be medication noncompliance who presented to the emergency department after sustaining a seizure at work. The patient is being admitted to observation for further evaluation overnight. 1. Seizure - the patient's serum valproic acid level is undetectable. 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 The patient is currently alert without any neurologic deficits, but remains confused. Contacted neurologist junction maker, Dr. Dent, who recommended one additional IV dose of valproic acid at 250 mg and then to start oral valproic acid 500 mg twice daily and can discharge at a 1000 mg, but the extended release formulation to be taken at bedtime. The patient will be monitored overnight with frequent neuro checks. Dr. Dent does not recommend any further imaging or repeat EEG at this time. Seizure precautions will be put into place. 2. Code status. The patient is a full code. 3. Healthcare proxy is his mother. 4. DVT prophylaxis. The patient is at low risk for deep venous thrombosis and will be encouraged to ambulate frequently, chemical prophylaxis will not be initiated at this time. BERTHA QUINTANA CC: Dr. Shelly Mims* [id number]/[facility] #: [id number] [facility]PITALCelsa
[2017-02-25 06:04] LABS: Hematocrit 40 % (42-52); Mean Corpuscular HGB Conc 33 g/dl (31-36); Mean Corpuscular Hemoglobin 23 pg (27-31); Mean Platelet Volume 9 um3 (7.4-10.4); Red Blood Count 5.56 10^6/ul (4.0-5.4); Red Cell Distribution Width 15 % (10.5-15); White Blood Count 11.8 10^3/ul (3.5-10.8)
[2017-02-25 06:19] LABS: BUN/Creatinine Ratio 11.8 (8-20); Calcium 8.9 mg/dL (8.6-10.3); EGFR African American 107.6 (>60); EGFR Non-African American 83.7 (>60); Potassium 3.6 mmol/L (3.5-5.0)
[2017-02-25 06:25] LABS: Comments Flag Yes; Mean Corpuscular Volume 72 fL (80-94)
[2017-02-25] MEDS: Divalproex DR TAB(*) 500 MG PO SCH (08:59)
[2017-02-25 09:52] VITALS: BP 92/60
--- NOTE | 2017-02-25 09:59 | ED ---
Joss Keller Benjamin, scribed for Manjeet Hernandez MD on 02/24/17 at 0853 . Altered Mental Status - HPI Summary HPI Summary: 21yo male BIB EMS for a sz episode. Per EMS, pt had a sudden onset of grand mal Sz lasting about 1 minute. Pt also fell backwards on to the ground and hit the back of his head. Pt presents a 1 inch laceration at the back of his head. Pt states that he doesn't recall his sz episode. Pt also reports MURPHY, but says a MURPHY is common after a sz episode for him. - History Of Current Complaint Stated Complaint: SEIZURE,FALL Hx Obtained From: EMS Onset/Duration: Resolved, Suddenly Timing: Lasting Minutes - 1 min Severity Initially: Moderate Severity Currently: None Aggravating Factor(s): Nothing Alleviating Factor(s): Nothing Associated Signs And Symptoms: Positive: Seizure - Allergies/Home Medications Allergies/Adverse Reactions: Allergies Allergy/AdvReac Type Severity Reaction Status Date / Time Sulfa Antibiotics AdvReac Severe HIVES Verified 01/10/17 10:06 PMH/Surg Hx/FS Hx/Imm Hx Cardiovascular History: Reports: Other Cardiovascular Problems/Disorders - "ATHLETES' HEART" Neurological History: Reports: Hx Seizures - generalized epilepsy - Surgical History Surgery Procedure, Year, and Place: no surgical hx Infectious Disease History: Reports: Hx of Known/Suspected MRSA - Family History Known Family History: Positive: Cardiac Disease, Hypertension, Diabetes, Other - seizure disorder - uncle - Social History Occupation: Employed Full-time Lives: With Family Alcohol Use: Rare Hx Substance Use: Yes Substance Use Type: Reports: Marijuana Smoking Status (MU): Never Smoked Tobacco Review of Systems Constitutional: Negative Eyes: Negative ENT: Negative Cardiovascular: Negative Respiratory: Negative Gastrointestinal: Negative Genitourinary: Negative Musculoskeletal: Negative Positive: Other - 1 inch laceration at the head Neurological: Other - Sz Psychological: Normal All Other Systems Reviewed And Are Negative: Yes Physical Exam Triage Information Reviewed: Yes Vital Signs On Initial Exam: Initial Vitals Temp Pulse Resp BP Pulse Ox 97.8 F 92 22 125/64 93 02/24/17 08:51 02/24/17 08:51 02/24/17 08:51 02/24/17 08:51 02/24/17 08:51 Vital Signs Reviewed: Yes Appearance: Positive: Well-Appearing, No Pain Distress, Well-Nourished Skin: Positive: Warm, Skin Color Reflects Adequate Perfusion, Dry, Other - 4- 5cm occipital laceration Head/Face: Positive: Normal Head/Face Inspection Eyes: Positive: Normal ENT: Positive: Normal ENT inspection Neck: Positive: Supple, Nontender Respiratory/Lung Sounds: Positive: Clear to Auscultation, Breath Sounds Present Cardiovascular: Positive: RRR Abdomen Description: Positive: Nontender, Soft Bowel Sounds: Positive: Present Musculoskeletal: Positive: Normal Neurological: Positive: Sensory/Motor Intact, Alert, Oriented to Person Place, Time, CN Intact II-III, Reflexes Intact Psychiatric: Positive: Affect/Mood Appropriate Diagnostics - Vital Signs Vital Signs Temp Pulse Resp BP Pulse Ox 02/24/17 18:00 16 02/24/17 17:59 97.3 F 104 16 126/75 95 02/24/17 17:44 98.7 F 86 18 101/76 02/24/17 16:00 89 111/73 98 02/24/17 15:30 80 74/37 95 02/24/17 15:00 82 98/48 94 02/24/17 14:30 80 88/45 94 02/24/17 14:00 86 102/59 95 02/24/17 13:30 90 97/59 97 02/24/17 13:00 91 91/55 96 02/24/17 12:30 89 101/68 95 02/24/17 12:00 98 98/63 94 02/24/17 11:17 110 23 96/57 96 02/24/17 11:00 118 26 91/49 95 02/24/17 10:52 130 93 02/24/17 10:51 131 22 97/52 97 02/24/17 09:45 86 22 119/70 96 02/24/17 09:09 93 02/24/17 08:51 97.8 F 92 22 125/64 93 - Laboratory Lab Results: Lab Results 02/24/17 02/24/17 02/24/17 Range/Units 09:05 09:05 09:05 WBC 5.8 (3.5-10.8) 10^3/ul RBC 5.92 H (4.0-5.4) 10^6/ul Hgb 13.8 L (14.0-18.0) g/dl Hct 43 (42-52) % MCV 72 L (80-94) fL MCH 23 L (27-31) pg MCHC 32 (31-36) g/dl RDW 15 (10.5-15) % Plt Count 285 (150-450) 10^3/ul MPV 8 (7.4-10.4) um3 Neut % (Auto) 56.6 (38-83) % Lymph % (Auto) 28.9 (25-47) % Owsley % (Auto) 10.0 H (1-9) % Eos % (Auto) 4.0 (0-6) % Baso % (Auto) 0.5 (0-2) % Absolute Neuts (auto) 3.3 (1.5-7.7) 10^3/ul Absolute Lymphs (auto) 1.7 (1.0-4.8) 10^3/ul Absolute Monos (auto) 0.6 (0-0.8) 10^3/ul Absolute Eos (auto) 0.2 (0-0.6) 10^3/ul Absolute Basos (auto) 0 (0-0.2) 10^3/ul Absolute Nucleated RBC 0.01 10^3/ul Nucleated RBC % 0.1 INR (Anticoag Therapy) 0.94 (0.89-1.11) Sodium 136 (133-145) mmol/L Potassium 4.0 (3.5-5.0) mmol/L Chloride 104 (101-111) mmol/L Carbon Dioxide 25 (22-32) mmol/L Anion Gap 7 (2-11) mmol/L BUN 16 (6-24) mg/dL Creatinine 1.13 (0.67-1.17) mg/dL Est GFR ( Amer) 104.4 (>60) Est GFR (Non-Af Amer) 81.1 (>60) BUN/Creatinine Ratio 14.2 (8-20) Glucose 114 H (70-100) mg/dL Lactic Acid (0.5-2.0) mmol/L Calcium 9.1 (8.6-10.3) mg/dL Magnesium 2.2 (1.9-2.7) mg/dL Total Bilirubin 0.80 (0.2-1.0) mg/dL AST 26 (13-39) U/L ALT 33 (7-52) U/L Alkaline Phosphatase 55 (34-104) U/L Total Protein 7.3 (6.4-8.9) g/dL Albumin 4.2 (3.2-5.2) g/dL Globulin 3.1 (2-4) g/dL Albumin/Globulin Ratio 1.4 (1-3) Valproic Acid < 13.0 L (50-100) mcg/mL 02/24/17 Range/Units 09:05 WBC (3.5-10.8) 10^3/ul RBC (4.0-5.4) 10^6/ul Hgb (14.0-18.0) g/dl Hct (42-52) % MCV (80-94) fL MCH (27-31) pg MCHC (31-36) g/dl RDW (10.5-15) % Plt Count (150-450) 10^3/ul MPV (7.4-10.4) um3 Neut % (Auto) (38-83) % Lymph % (Auto) (25-47) % Owsley % (Auto) (1-9) % Eos % (Auto) (0-6) % Baso % (Auto) (0-2) % Absolute Neuts (auto) (1.5-7.7) 10^3/ul Absolute Lymphs (auto) (1.0-4.8) 10^3/ul Absolute Monos (auto) (0-0.8) 10^3/ul Absolute Eos (auto) (0-0.6) 10^3/ul Absolute Basos (auto) (0-0.2) 10^3/ul Absolute Nucleated RBC 10^3/ul Nucleated RBC % INR (Anticoag Therapy) (0.89-1.11) Sodium (133-145) mmol/L Potassium (3.5-5.0) mmol/L Chloride (101-111) mmol/L Carbon Dioxide (22-32) mmol/L Anion Gap (2-11) mmol/L BUN (6-24) mg/dL Creatinine (0.67-1.17) mg/dL Est GFR ( Amer) (>60) Est GFR (Non-Af Amer) (>60) BUN/Creatinine Ratio (8-20) Glucose (70-100) mg/dL Lactic Acid 2.2 H* (0.5-2.0) mmol/L Calcium (8.6-10.3) mg/dL Magnesium (1.9-2.7) mg/dL Total Bilirubin (0.2-1.0) mg/dL AST (13-39) U/L ALT (7-52) U/L Alkaline Phosphatase (34-104) U/L Total Protein (6.4-8.9) g/dL Albumin (3.2-5.2) g/dL Globulin (2-4) g/dL Albumin/Globulin Ratio (1-3) Valproic Acid (50-100) mcg/mL Result Diagrams: 02/25/17 05:55 02/25/17 05:55 Lab Statement: Any lab studies that have been ordered have been reviewed, and results considered in the medical decision making process. - CT CT Brain CT Interpretation: No Acute Changes - IMPRESSION: 1. NO EVIDENCE FOR ACUTE INTRACRANIAL ABNORMALITY. 2. HEMATOMA IN THE SCALP IN THE POSTERIOR RIGHT PARIETAL REGION NOTED. CT Interpretation Completed By: Radiologist Re-Evaluation - Re-Evaluation First Eval Re-Evaluation Time: 10:40 Comment: Sz episode at 10:41. Altered Mental Statu Course/Dx - Course Course Of Treatment: Dr. Dent (neurologist) at 1035. Assessment/Plan: Mr. Ortiz had a seizure at work this AM and hit the back of his head sustaining a laceration. He was post-ictal when EMS arrived but AAOX3 on arrival here. He has a known seizure disorder and is often not compliant. He was seen by Dr. Mims a month or so ago and started on valproic acid 500 mgs BID. His W/U was negative here except for an undetectable depakote level and Dr. Dent was contacted and recommended loading with 500 mgs IV Depakane. He had another generalized tonic-clonic siezure here prior to getting the med. I watched him for a long time and he was not waking up well after the second seizure so I asked the hospitalists to OBV him. - Diagnoses Discharge Diagnoses: Refractory tonic-clonic seizure Discharge - Discharge Plan Condition: Stable Disposition: ADMITTED TO [facility] The documentation as recorded by the debibJoss moore Benjamin accurately reflects the service I personally performed and the decisions made by me, Manjeet Hernandez MD.
--- NOTE | 2017-02-26 00:17 | DS ---
DISCHARGE SUMMARY: DATE OF ADMISSION: 02/24/17 DATE OF DISCHARGE: 02/25/17 PRIMARY CARE PROVIDER: None. PRIMARY NEUROLOGIST: Shelly Mims MD. PRIMARY DISCHARGE DIAGNOSES: 1. Seizure with a known history of epilepsy. 2. Medical noncompliance. DISCHARGE MEDICATIONS: Depakote DR 500 mg p.o. b.i.d. Medication Changes: Discontinue previously prescribed extended release and start immediate release formulation due to financial concerns. HOSPITAL IMAGING: CT of the brain shows no acute intracranial process. There is a hematoma in the scalp in the posterior right parietal region. HOSPITAL COURSE: This is a 21-year-old gentleman with known epilepsy and multiple episodes of medical noncompliance in the past who presented to the emergency department after sustaining a seizure while at work. The patient has fallen and hit his head sustaining a laceration in the right parietal region and has received 3 osmin in the emergency department. Initial CT showed no evidence of facture or bleeding. The patient sustained another seizure shortly after reaching the emergency department. Initial labs were unremarkable with the exception of his valproic acid levels being undetectable. The patient was loaded with IV valproic acid in the emergency department. He remained significantly lethargic for several hours, eventually becoming alert and able to participate in exam and follow directions but remains quite confused. He was initially admitted to the telemetry floor, but shortly after reaching the floor sustained another seizure which lasted several minutes but responded to 1 mg of Ativan. The patient was subsequently transferred to the ICU for further monitoring overnight, but the patient remained asymptomatic and regained consciousness, able to follow commands and eventually his confusion resolved. The patient reported that he has been without health insurance. He recently started a new job and is eligible for benefits in approximately 3 weeks. His elective health insurance is certainly a significant contributor to his medical compliance. He met with social work during his hospital stay who helped to find Depakote 30- day supply for 15 dollars through [employer] which his girlfriend said that she could purchase for him. Neurologist, Dr. Saul Dent was consulted by phone during his hospital stay. He agreed with treatment plan and made recommendations for home antiepileptic medications. DISPOSITION AND FOLLOWUP PLAN: The patient is being discharged to home. Depakote prescribed as listed above. He has a scheduled followup appointment with Dr. Shelly Mims on the 11 of May which he is encouraged to keep. BERTHA QUINTANA CC: Shelly Mims MD* [id number]/[facility] #: [id number] [facility]
== END 2017-02-25 11:20 | disposition home or self-care (01) ==
LOC: ED 08:46 → MEDTELE 15:52 → OBSVTOIN 18:36 → INTOOBSV 18:36 → ICU 18:40
PROVIDERS: ADMIT Hospitalist; ATTEND Hospitalist
DX: G40.909 Epilepsy, unspecified, not intractable, without status epilepticus (principal); Z91.14 Patient's other noncompliance with medication regimen; S01.01XA Laceration without foreign body of scalp, initial encounter; W19.XXXA Unspecified fall, initial encounter; Y92.9 Unspecified place or not applicable; I10 Essential (primary) hypertension; E11.9 Type 2 diabetes mellitus without complications; R51 Headache
CPT/HCPCS: 12001; 36415; 70450; 80048; 80053; 80164; 83605; 83735; 85025; 85610; 87641; 96365; 96366; 96375; 99284; A9270-GY; G0378; J2060

== ENCOUNTER 2017-03-02 09:51 | Emergency (ER) | payer SELFPAY ==
[2017-03-02 09:55] VITALS: BP 133/83
--- NOTE | 2017-03-02 10:28 | ED ---
ED Suture/Wound Check - HPI Summary HPI Summary: Patient presents for staple removal from his head. They were placed 6 days ago. No concerns or complications. - History Of Current Complaint Chief Complaint: EDLacSutureRecheck Stated Complaint: STAPLE REMOVAL Time Seen by Provider: 03/02/17 09:57 Hx Obtained From: Patient Onset/Duration: Sudden Onset Surgical Site: scalp Severity: Mild Pain Intensity: 0 Procedure Type: laceration repair with osmin - Allergies/Home Medications Allergies/Adverse Reactions: Allergies Allergy/AdvReac Type Severity Reaction Status Date / Time Sulfa Antibiotics AdvReac Severe HIVES Verified 01/10/17 10:06 PMH/Surg Hx/FS Hx/Imm Hx Cardiovascular History: Reports: Other Cardiovascular Problems/Disorders - "ATHLETES' HEART" Sensory History: Denies: Hx Contacts or Glasses, Hx Hearing Aid Opthamlomology History: Denies: Hx Contacts or Glasses Neurological History: Reports: Hx Seizures - generalized epilepsy , Other Neuro Impairments/Disorders - possible concussion Psychiatric History: Reports: Other Psychiatric Issues/Disorders - possible substance abuse - Surgical History Surgery Procedure, Year, and Place: no surgical hx Infectious Disease History: No Infectious Disease History: Reports: Hx of Known/Suspected MRSA Denies: Traveled Outside the [place] in Last 30 Days - Family History Known Family History: Positive: Cardiac Disease, Hypertension, Diabetes, Other - seizure disorder - uncle - Social History Occupation: Unemployed Lives: With Family Alcohol Use: Rare Hx Substance Use: Yes Substance Use Type: Reports: Marijuana Smoking Status (MU): Never Smoked Tobacco Review of Systems All Other Systems Reviewed And Are Negative: Yes Physical Exam Triage Information Reviewed: Yes Vital Signs On Initial Exam: Initial Vitals Temp Pulse Resp BP Pulse Ox 97.4 F 60 18 133/83 99 03/02/17 09:51 03/02/17 09:51 03/02/17 09:51 03/02/17 09:51 03/02/17 09:51 Vital Signs Reviewed: Yes Appearance: Positive: Well-Appearing, No Pain Distress, Obese Skin: Positive: Warm, Skin Color Reflects Adequate Perfusion, Dry, Soft Head/Face: Positive: Normal Head/Face Inspection - intact osmin without erythema or edema. Wound appears well healed Eyes: Positive: EOMI, KATERINA, Conjunctiva Clear ENT: Positive: Normal ENT inspection, Hearing grossly normal Respiratory/Lung Sounds: Positive: Breath Sounds Present Cardiovascular: Positive: RRR Musculoskeletal: Negative: Edema Left, Edema Right Neurological: Positive: Sensory/Motor Intact, Alert, Oriented to Person Place, Time, NV Bundle Intact Distally, Normal Gait Psychiatric: Positive: Affect/Mood Appropriate AVPU Assessment: Alert Diagnostics - Vital Signs Vital Signs Temp Pulse Resp BP Pulse Ox 03/02/17 09:58 97.4 F 60 16 133/83 99 03/02/17 09:51 97.4 F 60 18 133/83 99 - Laboratory Lab Statement: Any lab studies that have been ordered have been reviewed, and results considered in the medical decision making process. Course/Dx - Differential Diagnoses Differential Diagnoses: Abscess, Cellulitis, Dehiscence, Healing Wound, Hematoma , Suture Removal - Clinical Impression Provider Diagnoses: Removal of staple Discharge - Discharge Plan Condition: Stable Disposition: HOME Referrals: No Primary Care Phys,NOPCP [Primary Care Provider] - Additional Instructions: Please return to the emergency department if symptoms worsen.
== END 2017-03-02 10:27 | disposition home or self-care (01) ==
LOC: ED 09:51
DX: Z48.02 Encounter for removal of sutures (principal)
CPT/HCPCS: 99281

== ENCOUNTER 2018-04-04 11:40 | Emergency (ER) | payer SELFPAY ==
[2018-04-04 12:11] VITALS: BP 112/76
--- NOTE | 2018-04-04 12:30 | UC ---
Skin Complaint HPI - HPI Summary HPI Summary: rash left arm x 5 weeks has been using antifungal cream for few weeks and not getting better. has been getting worse over the past few days, with increase in size , the area is itchy , swollen , no discharge, no pain - History of Current Complaint Chief Complaint: UCRash Time Seen by Provider: 04/04/18 12:06 Stated Complaint: RASH ON LT SHOULDER Hx Obtained From: Patient Onset/Duration: Gradual Onset, Lasting Weeks - 5, Still Present Timing: Constant Onset Severity: Moderate Current Severity: Moderate Pain Intensity: 0 Location: Other - left arm / forearm Character: Swelling, Pruritus, Redness, Raised Aggravating Factor(s): Touch Alleviating Factor(s): Nothing Associated Signs & Symptoms: Negative: Vomiting, Numbness, Fever - Allergy/Home Medications Allergies/Adverse Reactions: Allergies Allergy/AdvReac Type Severity Reaction Status Date / Time Sulfa (Sulfonamide Allergy Hives Verified 04/04/18 12:12 Antibiotics) Review of Systems Constitutional: Negative Skin: Rash Eyes: Negative ENT: Negative Respiratory: Negative Cardiovascular: Negative Gastrointestinal: Negative Is Patient Immunocompromised?: No All Other Systems Reviewed And Are Negative: Yes PMH/Surg Hx/FS Hx/Imm Hx Previously Healthy: Yes - Surgical History Surgical History: Unable to Obtain/Confirm Surgery Procedure, Year, and Place: no surgical hx - Family History Known Family History: Positive: Cardiac Disease, Hypertension, Diabetes, Other - seizure disorder - uncle - Social History Alcohol Use: Occasionally Substance Use Type: Marijuana Substance Use Comment - Amount & Last Used: 04/02/18 Smoking Status (MU): Never Smoked Tobacco - Immunization History Most Recent Influenza Vaccination: unknown Most Recent Pneumonia Vaccination: unknown Physical Exam Triage Information Reviewed: Yes Appearance: Well-Appearing, No Pain Distress, Well-Nourished Vital Signs: Initial Vital Signs Temp 98.5 F 04/04/18 12:04 Pulse 67 04/04/18 12:04 Resp 18 04/04/18 12:04 BP 112/76 04/04/18 12:04 Pulse Ox 98 04/04/18 12:04 Vital Signs Reviewed: Yes Eye Exam: Normal Eyes: Positive: Conjunctiva Clear ENT: Positive: Normal ENT inspection, Hearing grossly normal, Pharynx normal Neck: Positive: Supple, Nontender, No Lymphadenopathy Respiratory: Positive: Chest non-tender, Lungs clear, Normal breath sounds Musculoskeletal: Positive: Strength Intact, ROM Intact, No Edema Skin: Positive: rashes - macular rash, left arm : + erythema, swelling, no tenderness, no discharge Course/Dx - Diagnoses Provider Diagnoses: contact dermatitis Discharge - Sign-Out/Discharge Documenting (check all that apply): Discharge/Admit/Transfer - Discharge Plan Condition: Stable Disposition: HOME Prescriptions: predniSONE TAB* [Deltasone 20 MG TAB*] 40 mg PO DAILY #10 tab Triamcinolone 0.1% CREAM(NF) [Kenalog 0.1% Cream (NF)] 1 applic TOPICAL BID #60 gm Patient Education Materials: Contact Dermatitis (ED) Referrals: Agustin Borges MD [Primary Care Provider] - 7 Days - Billing Disposition and Condition Condition: STABLE Disposition: Home
== END 2018-04-04 12:35 | disposition home or self-care (01) ==
LOC: UCCORT 11:40
DX: L25.9 Unspecified contact dermatitis, unspecified cause (principal); Z88.2 Allergy status to sulfonamides
CPT/HCPCS: 99212; G0463

== ENCOUNTER 2018-08-06 18:22 | Emergency (ER) | payer OTHER ==
[2018-08-06 19:15] VITALS: BP 145/76
--- NOTE | 2018-08-06 20:40 | UC ---
Upper Extremity HPI - HPI Summary HPI Summary: 23 year old male presents with complaints of right thumb pain after injury at work. 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 Reports pain is a constant throbbing. Worsens with any movement. States has mild tingling in thumb, index, and middle fingers. - History of Current Complaint Chief Complaint: UCUpperExtremity Stated Complaint: RIGHT THUMB INJURY Time Seen by Provider: 08/06/18 20:02 Hx Obtained From: Patient Onset/Duration: Sudden Onset Severity Currently: Moderate Pain Intensity: 8 Character: Throbbing Aggravating Factor(s): Movement Alleviating Factor(s): Nothing Associated Signs And Symptoms: Positive: Numbness/Tingling. Negative: Swelling , Redness, Bruising, Weakness - Allergies/Home Medications Allergies/Adverse Reactions: Allergies Allergy/AdvReac Type Severity Reaction Status Date / Time Sulfa (Sulfonamide Allergy Hives Verified 08/06/18 19:10 Antibiotics) PMH/Surg Hx/FS Hx/Imm Hx Previously Healthy: Yes - Denies significant PMH - Surgical History Surgical History: None Surgery Procedure, Year, and Place: no surgical hx - Family History Known Family History: Positive: Cardiac Disease, Hypertension, Diabetes, Other - seizure disorder - uncle - Social History Occupation: Employed Full-time Lives: Alone Alcohol Use: Occasionally Substance Use Type: None Substance Use Comment - Amount & Last Used: 04/02/18 Smoking Status (MU): Never Smoked Tobacco - Immunization History Most Recent Influenza Vaccination: unknown Most Recent Tetanus Shot: UTD Most Recent Pneumonia Vaccination: unknown Review of Systems All Other Systems Reviewed And Are Negative: Yes Constitutional: Positive: Negative Skin: Positive: Negative Motor: Positive: Decreased ROM - right thumb d/t pain Neurovascular: Positive: Decreased Sensation Musculoskeletal: Positive: Other: - see HPI Is Patient Immunocompromised?: No Physical Exam Triage Information Reviewed: Yes Appearance: Well-Appearing, No Pain Distress, Well-Nourished Vital Signs: Initial Vital Signs Temp 98.8 F 08/06/18 19:10 Pulse 76 08/06/18 19:10 Resp 19 08/06/18 19:10 BP 145/76 08/06/18 19:10 Pulse Ox 100 08/06/18 19:10 Respiratory: Positive: Lungs clear, Normal breath sounds, No respiratory distress Cardiovascular: Positive: RRR, No Murmur, Pulses Normal, Brisk Capillary Refill Musculoskeletal: Positive: Strength Intact, No Edema, ROM Limited @ - Right thumb d/t pain, Other: - Tenderness over the base of right thumb. No gross deformity or crepitus. No erythema or ecchymosis noted. 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 Exam reveal tenderness at the base of the thumb. ROM limited by pain. Sensation intact although patient reports tingling sensation to thumb, index, and middle fingers. X-ray negative for fracture or dislocation. Likely sprain of thumb. Patient was placed in a prefab thumb spica splint by RN. Recommend conservative treatment with NSAIDs and RICE. He is to follow up with orthopedic surgery within 7 days for evaluation and treatment. Warning symptoms were provided. Verbalizes understanding and agrees with POC. - Differential Dx/Diagnosis Differential Diagnosis/HQI/PQRI: Contusion, Fracture (Closed), Sprain Provider Diagnoses: right thumb sprain, elevated blood pressure reading Discharge - Sign-Out/Discharge Documenting (check all that apply): Patient Departure All imaging exams completed and their final reports reviewed: No - Discharge Plan Condition: Stable Disposition: HOME Prescriptions: Naproxen [Naproxen 500 mg tab] 500 mg PO Q12HR #30 tablet Patient Education Materials: Finger Sprain (ED) Forms: *Work Release Referrals: Agustin Borges MD [Primary Care Provider] - Aj Aiken MD [Medical Doctor] - 7 Days Additional Instructions: The x-ray performed in the clinic tonight did not show any evidence of fracture or dislocation. I suspect you have a bad sprain of the thumb. The x-ray will be reviewed tomorrow by the radiologist. If they see something that would change your treatment plan we will notify you. Wear the thumb spica splint applied in the clinic tonight. You may remove to shower but should wear at all other times including at night when you sleep. Rest the hand as much as possible. Apply ice to the affected area for 15-20 minutes at least 4 times a day. Keep the hand elevated at the level of your heart to help reduce swelling. Take naproxen 1 tab every 12 hours with food for the next 7 days to help with pain and swelling. After 7 days may take every 12 hours as needed for pain. Follow up with Dr Aiken, orthopedic surgery, within 7 days for evaluation and treatment. Your blood pressure was elevated in the clinic tonight. It is recommended that you have this rechecked within the next 4 weeks. Seek immediate medical attention in the emergency room if you have pain not managed with pain medication, have increased swelling, or any worsening of symptoms. - Billing Disposition and Condition Condition: STABLE Disposition: Home
[2018-08-06] MEDS ORDERED: Naproxen TAB* 250 MG PO ONE (20:41)
--- NOTE | 2018-08-07 14:59 | UC ---
- Progress Note Progress Note: XR negative No change in plan of care Discharge - Sign-Out/Discharge Documenting (check all that apply): Post-Discharge Follow Up All imaging exams completed and their final reports reviewed: Yes - Discharge Plan Condition: Stable Disposition: HOME Prescriptions: Naproxen [Naproxen 500 mg tab] 500 mg PO Q12HR #30 tablet Patient Education Materials: Finger Sprain (ED) Forms: *Work Release Referrals: Aj Aiken MD [Medical Doctor] - 7 Days Agustin Borges MD [Primary Care Provider] - Additional Instructions: The x-ray performed in the clinic tonight did not show any evidence of fracture or dislocation. I suspect you have a bad sprain of the thumb. The x-ray will be reviewed tomorrow by the radiologist. If they see something that would change your treatment plan we will notify you. Wear the thumb spica splint applied in the clinic tonight. You may remove to shower but should wear at all other times including at night when you sleep. Rest the hand as much as possible. Apply ice to the affected area for 15-20 minutes at least 4 times a day. Keep the hand elevated at the level of your heart to help reduce swelling. Take naproxen 1 tab every 12 hours with food for the next 7 days to help with pain and swelling. After 7 days may take every 12 hours as needed for pain. Follow up with Dr Aiken, orthopedic surgery, within 7 days for evaluation and treatment. Your blood pressure was elevated in the clinic tonight. It is recommended that you have this rechecked within the next 4 weeks. Seek immediate medical attention in the emergency room if you have pain not managed with pain medication, have increased swelling, or any worsening of symptoms. - Billing Disposition and Condition Condition: STABLE Disposition: Home
== END 2018-08-06 20:55 | disposition home or self-care (01) ==
LOC: UCCORT 18:22
DX: S63.601A Unspecified sprain of right thumb, initial encounter (principal); W50.0XXA Accidental hit or strike by another person, initial encounter; Y93.89 Activity, other specified; Y92.199 Unspecified place in other specified residential institution as the place of occurrence of the external cause; Y99.0 Civilian activity done for income or pay; Z88.1 Allergy status to other antibiotic agents
CPT/HCPCS: 99213; A9270-GY; G0463

== ENCOUNTER 2019-04-23 12:09 | Emergency (ER) | payer OTHER ==
[2019-04-23 12:31] VITALS: BP 129/77
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
== END 2019-04-23 13:21 | disposition home or self-care (01) ==
LOC: UCCORT 12:09
DX: S83.92XA Sprain of unspecified site of left knee, initial encounter (principal); X50.0XXA Overexertion from strenuous movement or load, initial encounter; Y93.89 Activity, other specified; Y92.89 Other specified places as the place of occurrence of the external cause; Y99.0 Civilian activity done for income or pay
CPT/HCPCS: 99211; G0463